=== PATIENT | female | born 1995 | race Caucasian/White ===

== ENCOUNTER 2016-12-20 21:21 | Emergency (ER) | payer MEDICAID | END 2016-12-20 23:52 | disposition home or self-care (01) | LOC: ED 21:21 | DX: J36 Peritonsillar abscess (principal) ==

== ENCOUNTER 2016-12-22 09:13 | Emergency (ER) | payer MEDICAID ==
[2016-12-22] MEDS ORDERED: DEXAMETHASONE SOD PHOS 10 MG/1 ML VIAL ONE (09:39)
[2016-12-22] MEDS ORDERED: KETOROLAC TROMETHAMINE 30 MG/ML 1 ML VIAL ONE (09:39)
[2016-12-22] MEDS ORDERED: SODIUM CHLORIDE 0.9% 1,000 ML ONE (09:40)
[2016-12-22] MEDS ORDERED: CEFTRIAXONE 2 GRAM DUPLEX 50 ML IV ONE (09:40)
[2016-12-22 09:50] LABS: ABSOLUTE NEUTROPHIL COUNT 6.1 K/mm3 (1.8-7.7); BASO % 0.2 % (0.2-1.0); EOS # 0.1 (0.0-0.5); EOS % 0.6 % (0.9-2.9); HEMATOCRIT 41.4 % (37.0-47.0); HEMOGLOBIN 13.4 gm/l (12.0-16.0); IMM NEUT% 0.3 % (0-1); LYMPH % 22.5 % (15-45); MEAN CELL VOLUME 89.2 fl (81.0-99.0); MEAN CORPUSCULAR HEMOGLOBIN 28.9 pg (27.0-31.0); MEAN CORPUSCULAR HGB CONC 32.4 g/dl (33.0-37.0); MEAN PLATELET VOLUME 9.1 fl (7.4-10.4); MONO # 0.5 (0.0-0.8); NEUT % 70.4 % (43-75); PLATELET COUNT 388 K/mm3 (130-400); RED CELL DISTRIBUTION WIDTH 13.8 % (11.5-14.5)
[2016-12-22 10:06] LABS: ALBUMIN 3.9 gm/dL (3.5-5.7); CALCIUM 9.6 mg/dL (8.6-10.3)
== END 2016-12-22 12:28 | disposition home or self-care (01) ==
LOC: ED 09:13
DX: J36 Peritonsillar abscess (principal); Z79.2 Long term (current) use of antibiotics
CPT/HCPCS: 84703; 85025; 80053; 96375 ×2; 99283 ×2; 96365; J1100; J1885; J7030; J0696